=== PATIENT | female | born 1980 | race Two or more races ===

== ENCOUNTER 2018-01-19 03:28 | Emergency (ER) | payer BC ==
[2018-01-19] MEDS ORDERED: LORAZEPAM INJ 2 MG/1 ML VIAL IV ONE (03:42)
--- NOTE | 2018-01-19 03:44 | ER Document Report ---
ED General - General Chief Complaint: Altered Mental Status Stated Complaint: ETOH Time Seen by Provider: 01/19/18 03:39 Notes: Patient is 37-year-old female is brought in by the paramedics because of acute alcohol intoxication. She was at a family reunion had too much to drink. She has not had anything to eat today. No recent fevers or infections. She does not take any medications. She is otherwise healthy. No history of seizures. She does not drink on a daily basis. History is obtained from patient's mother who is at bedside. TRAVEL OUTSIDE OF THE [place] IN LAST 30 DAYS: - unknown Past Medical History - Social History Smoking Status: Never Smoker Frequency of alcohol use: Occasional Drug Abuse: None Family History: Reviewed & Not Pertinent Review of Systems - Review of Systems -: Yes ROS unobtainable due to patient's medical condition - Patient is altered from alcohol intoxication. Physical Exam - Notes Notes: General Appearance: Patient laying in bed awake but altered intoxicated with alcohol. She is kicking her legs back and forth. She will not answer my questions. Vitals: reviewed, See vital signs table. Head: no swelling or tenderness to the head Eyes: PERRL, EOMI, Conjuctiva clear Mouth: No decreasd moisture Throat: No tonsillar inflammation, No airway obstruction, No lymphadenopathy Neck: Supple, no neck tenderness. No neck swelling. Lungs: No wheezing, No rales, No rhonci, No accessory muscle use, good air exchange bilaterally. Heart: Normal rate, Regular rythm, No murmur, no rub Abdomen: Normal BS, soft, No rigidity, No abdominal tenderness, No guarding, no rebound, no abdominal masses, no organomegaly Extremities: strength 5/5 in all extremities, good pulses in all extremities, no swelling or tenderness in the extremities, no edema. Skin: warm, dry, appropriate color, no rash Neuro: speech clear, oriented x 3, normal affect, responds appropriately to questions. Course - Re-evaluation Re-evalutation: 01/19/18 07:20 I have rechecked patient and she is now arousable and able to nod her head yes and no but still too intoxicated to stand on her own. We will monitor patient until sober enough to stand and walk without difficulty and able to go home with family. - Laboratory Result Diagrams: 01/19/18 04:30 01/19/18 04:30 Laboratory results interpreted by me: 01/19/18 01/19/18 04:30 04:30 WBC 11.8 H Hgb 10.8 L Hct 33.0 L MCH 26.0 L RDW 17.0 H Seg Neutrophils % 88.1 H Lymphocytes % 8.3 L Absolute Neutrophils 10.4 H Chloride 108 H Carbon Dioxide 21 L Glucose 115 H Salicylates < 1.0 L Acetaminophen < 10 L - EKG Interpretation by Me Additional EKG results interpreted by me: 01/19/18 04:22 EKG is reviewed and interpreted by me. EKG shows sinus rhythm with a rate of 74 bpm. Patient has some concave up ST segment elevation consistent with early repolarization abnormality. No reciprocal ST segment depression. SC interval is slightly prolonged. QRS duration QTc intervals are within normal range. No old EKG available for comparison. Discharge - Discharge Clinical Impression: ETOH abuse Condition: Good Disposition: HOME, SELF-CARE Additional Instructions: Please do not drink large amounts of alcohol. Please drink noncaffeinated liquids today and stay indoors and out of the heat. Return to the ER immediately if you have vomiting or feel unwell.
[2018-01-19 05:00] LABS: ABSOLUTE MONOCYTES (AUTO) 0.4 10^3/uL (0.1-1.4); ABSOLUTE NEUT (AUTO) 10.4 10^3/uL (1.7-8.2); BASOPHILS % (AUTO) 0.2 % (0-2); EOSINOPHILS % (AUTO) 0.2 % (0-6); HEMOGLOBIN 10.8 g/dL (12.0-15.5); LYMPHOCYTES % (AUTO) 8.3 % (13-45); MEAN CORPUSCULAR HGB CONC 32.7 g/dL (32.0-36.0); MEAN CORPUSCULAR VOLUME 80 fl (80-97); MONOCYTES % (AUTO) 3.2 % (3-13); PLATELET COUNT 354 10^3/uL (150-450); RED BLOOD COUNT 4.15 10^6/uL (3.72-5.28); SEGMENTED NEUTROPHILS % (AUTO) 88.1 % (42-78); TOTAL CELLS COUNTED % (AUTO) 100 %; WHITE BLOOD COUNT 11.8 10^3/uL (4.0-10.5)
[2018-01-19 05:18] LABS: ALANINE AMINOTRANSFERASE 26 U/L (9-52); ALBUMIN 4.1 g/dL (3.5-5.0); ALCOHOL 231 mg/dL (NONE DETECTED); ALKALINE PHOSPHATASE 51 U/L (38-126); ANION GAP 16 (5-19); ASPARTATE AMINO TRANSFERASE 36 U/L (14-36); BILIRUBIN,DIRECT 0.2 mg/dL (0.0-0.4); BILIRUBIN,TOTAL 0.2 mg/dL (0.2-1.3); BLOOD UREA NITROGEN 9 mg/dL (7-20); CALCIUM 8.6 mg/dL (8.4-10.2); CARBON DIOXIDE 21 mmol/L (22-30); CHLORIDE 108 mmol/L (98-107); GLUCOSE 115 mg/dL (75-110); SODIUM 144.6 mmol/L (137-145); TOTAL PROTEIN 7.5 g/dL (6.3-8.2)
[2018-01-19 05:19] LABS: ACETAMINOPHEN < 10 ug/mL (10-30); SALICYLATE < 1.0 mg/dL (2.0-20.0)
--- NOTE | 2018-01-19 13:43 | EKG REPORT ---
SEVERITY:- ABNORMAL ECG - SINUS RHYTHM FIRST DEGREE AV BLOCK PROBABLE LEFT ATRIAL ABNORMALITY PROBABLE LEFT VENTRICULAR HYPERTROPHY ST ELEVATION SUGGESTS PERICARDITIS : Confirmed by: Neelam Kent MD 19-Jan-2018 13:42:40
== END 2018-01-19 13:00 | disposition home or self-care (01) ==
LOC: ER 03:28
DX: F10.129 Alcohol abuse with intoxication, unspecified (principal); R41.82 Altered mental status, unspecified
CPT/HCPCS: 93005; 99285; 96374; 36415; 80307 ×3; 84703; 85025; 80053; 93010; J2060